=== PATIENT | male | born 1990 | race Caucasian/White ===

== ENCOUNTER 2017-04-08 11:28 | Emergency (ER) | payer OTHER ==
[~2017-04-08] VITALS: Wt 127.0 kg
[2017-04-08] MEDS ORDERED: ONDANSETRON (ODT) 4 MG TAB ODT STA (12:52)
[2017-04-08] MEDS ORDERED: HYDROCODONE/APAP (10/325) TAB PO ONE (13:00)
--- NOTE | 2017-04-08 13:45 | RADRPT ---
PROCEDURE: XR PELVIS. CLINICAL INDICATION: Pain status post fall TECHNIQUE: 3 views of the pelvis and left hip were performed. COMPARISON: None. FINDINGS: There is no evidence of acute fractures of the visualized pelvis. Iliac wings are intact. SI joints are symmetric. The pubic rami as are within normal limits. Both hips appear to be with normal limits . No gross abnormal osseous lesions. Soft tissues are unremarkable. There are degenerative changes o f the lumbosacral spine. IMPRESSION: 1. No evidence of acute fractures of visualized pelvis. RPTAT: AAPP Physician Rosaura Date Time Electronically viewed and signed by Physician Rosaura on 04/08/2017 13:45 ANSON/
--- NOTE | 2017-04-08 13:50 | RADRPT ---
PROCEDURE: XR left ribs . CLINICAL INDICATION: Fell 1 week ago TECHNIQUE: 4 views of the left ribs were obtained. COMPARISON: None FINDINGS: There is no evidence of acute fractures of the visualized left ribs. Bone mineralization is unremark able. The left lung is clear. No gross pneumothorax. The left costophrenic angle is sharp. The left shoulder and scapular appears to be within normal limits. IMPRESSION: 1. No gross signs of acute fractures of the visualized left ribs. 2. The left lung is clear. No gross pneumothorax. No evidence of pleural effusion. RPTAT: AAPP Physician Rosaura Date Time Electronically viewed and signed by Physician Rosaura on 04/08/2017 13:50 ANSON/
--- NOTE | 2017-04-08 14:01 | RADRPT ---
PROCEDURE: XR Lumbar Spine. CLINICAL INDICATION: Fall. Low back pain. TECHNIQUE: Three views of the lumbar spine are available for review COMPARISON: None available FINDINGS: There is maintenance of normal lumbar lordosis. Alignment is intact. There is moderate anterior co mpression fracture deformity of T12 vertebral body, likely chronic. No acute fracture or dislocation is seen. The vertebral body heights are preserved. There are mild degenerative changes of lumbar spine, most pronounced at T12-L1. IMPRESSION: 1. Moderate anterior compression fracture deformity of T12 vertebral body, likely chronic. Please n ote MRI is more sensitive for detection of acute fracture and can be obtained as clinically warrante d. 2. Mild discogenic disease mainly at T12-1. RPTAT: HH .Ajay Foote MD, Date Time Electronically viewed and signed by .Ajay Foote MD, on 04/08/2017 14:01 .N/
--- NOTE | 2017-04-08 14:21 | RADRPT ---
PROCEDURE: XR Thoracic Spine. CLINICAL INDICATION: Thoracic spine pain status post fall. TECHNIQUE: AP and lateral views of the thoracic spine were obtained. Images reviewed on a PACS wor kstation. COMPARISON: No prior studies are available for comparison. FINDINGS: There is a mild right convex scoliosis centered at T7. There is suggestion of 10% anterior compress ion deformity of the T12 vertebral body, incompletely evaluated due to mild scoliotic deformity. The remaining vertebral body heights appear maintained. The marrow density is normal in appearance. Th ere is preservation of the intervertebral disc spaces. The neural foramina appear patent. The para spinal soft tissues unremarkable. The visualized portions of the thorax are unremarkable. IMPRESSION: 1. Suggestion of 10% anterior compression deformity of the T12 of vertebral body, age indeterminate . CT is recommended to evaluate for possible fracture. 2. Trace right convex scoliosis centered at T7, slightly limiting evaluation. RPTAT: HGAS .George Fontaine MD, MD Date Time Electronically viewed and signed by .George Fontaine MD, on 04/08/2017 14:20 .S/
[2017-04-08] MEDS ORDERED: IBUP-1542 PO (14:38)
[2017-04-08] MEDS ORDERED: HYDR-902 PO (14:38)
[2017-04-08] MEDS ORDERED: ONDA4TAB14 PO (14:38)
--- NOTE | 2017-04-08 15:12 | ERD ---
ER Documentation Chief Complaint Chief Complaint fell a week ago , has back pain HPI 18-year-old male states that he fell about a week ago when he was going down the stairs he fell forward and hit his back. He states that he hit the left side of his upper back and has diffuse pain going down to his pelvis region. The pain is achy, diffuse, worse with movement and better at rest. He denies saddle anesthesia loss of bowel bladder function. Patient denies fevers, chills , chest pain, shortness breath. ROS All systems reviewed and are negative except as per history of present illness. Medications Home Meds Active Scripts Ibuprofen* (Motrin*) 600 Mg Tab, 600 MG PO Q6, #30 TAB Prov:MAHESH VILLARREAL PA-C 04/08/17 Ondansetron (Ondansetron Odt) 4 Mg Tab.rapdis, 4 MG PO Q6H Y for NAUSEA AND/OR VOMITING, #10 TAB Prov:MAHESH VILLARREAL PA-C 04/08/17 Hydrocodone/Acetaminophen ([place] 10-325 Tablet) 1 Each Tablet, 1 TAB PO Q6H Y for PAIN, #20 TAB Prov:MAHESH VILLARREAL PA-C 04/08/17 Allergies Allergies: Coded Allergies: No Known Allergy (Unverified , 04/08/17) PMhx/Soc History of Surgery: Yes (appendectomy) Hx Alcohol Use: No Hx Substance Use: No Hx Tobacco Use: No Smoking Status: Never smoker Physical Exam Vitals Vital Signs Date Time Temp Pulse Resp B/P Pulse Ox O2 Delivery O2 Flow Rate FiO2 04/08/17 11:32 97.7 72 18 133/86 99 Physical Exam Const: [] Head: Atraumatic Eyes: Normal Conjunctiva ENT: Normal External Ears, Nose and Mouth. Neck: Full range of motion..~ No meningismus. Resp: Clear to auscultation bilaterally Cardio: Regular rate and rhythm, no murmurs Abd: Soft, non tender, non distended. Normal bowel sounds Skin: No petechiae or rashes Back: No midline or flank tenderness Ext: No cyanosis, or edema Neur: Awake and alert Psych: Normal Mood and Affect Results 24 hrs Current Medications Medications (Trade) Dose Ordered Sig/Lorena Route PRN Reason Start Time Stop Time Status Last Admin Dose Admin Acetaminophen/ Hydrocodone Bitart ([place] (10/325)) 1 tab ONCE ONCE PO 04/08/17 13:00 04/08/17 13:01 DC 04/08/17 13:07 Ondansetron HCl (Zofran Odt) 4 mg ONCE STAT ODT 04/08/17 12:52 04/08/17 12:54 DC 04/08/17 13:07 DIAGNOSTIC IMAGING REPORT Patient: KALIA MARIE : 1990 Age: 26 Sex: M MR #: [id number] DOS: 04/08/17 1252 Ordering MD: MAHESH VILLARREAL PA-C Location: [facility] Room/Bed: PROCEDURE: XR Lumbar Spine. CLINICAL INDICATION: Fall. Low back pain. TECHNIQUE: Three views of the lumbar spine are available for review COMPARISON: None available FINDINGS: There is maintenance of normal lumbar lordosis. Alignment is intact. There is moderate anterior compression fracture deformity of T12 vertebral body, likely chronic. No acute fracture or dislocation is seen. The vertebral body heights are preserved. There are mild degenerative changes of lumbar spine, most pronounced at T12-L1. IMPRESSION: 1. Moderate anterior compression fracture deformity of T12 vertebral body, likely chronic. Please note MRI is more sensitive for detection of acute fracture and can be obtained as clinically warranted. 2. Mild discogenic disease mainly at T12-1. RPTAT: HH .Ajay Foote MD, MD Date Time Electronically viewed and signed by .Ajay Foote MD, MD on 04/08/2017 14: 01 .N/ CC: MAHESH VILLARREAL PA-C DIAGNOSTIC IMAGING REPORT Patient: KALIA MARIE : 1990 Age: 26 Sex: M MR #: [id number] DOS: 04/08/17 1252 Ordering MD: MAHESH VILLARREAL PA-C Location: [facility] Room/Bed: PROCEDURE: XR PELVIS. CLINICAL INDICATION: Pain status post fall TECHNIQUE: 3 views of the pelvis and left hip were performed. COMPARISON: None. FINDINGS: There is no evidence of acute fractures of the visualized pelvis. Iliac wings are intact. SI joints are symmetric. The pubic rami as are within normal limits. Both hips appear to be with normal limits. No gross abnormal osseous lesions. Soft tissues are unremarkable. There are degenerative changes of the lumbosacral spine. IMPRESSION: 1. No evidence of acute fractures of visualized pelvis. RPTAT: AAPP Physician Rosaura Date Time Electronically viewed and signed by Physician Rosaura on 04/08/2017 13:45 JL/ CC: MAHESH VILLARREAL PA-C DIAGNOSTIC IMAGING REPORT Patient: KALIA MARIE : 1990 Age: 26 Sex: M MR #: [id number] DOS: 04/08/17 1252 Ordering MD: MAHESH VILLARREAL PA-C Location: [facility] Room/Bed: PROCEDURE: XR Thoracic Spine. CLINICAL INDICATION: Thoracic spine pain status post fall. TECHNIQUE: AP and lateral views of the thoracic spine were obtained. Images reviewed on a PACS workstation. COMPARISON: No prior studies are available for comparison. FINDINGS: There is a mild right convex scoliosis centered at T7. There is suggestion of 10% anterior compression deformity of the T12 vertebral body, incompletely evaluated due to mild scoliotic deformity. The remaining vertebral body heights appear maintained. The marrow density is normal in appearance. There is preservation of the intervertebral disc spaces. The neural foramina appear patent. The paraspinal soft tissues unremarkable. The visualized portions of the thorax are unremarkable. IMPRESSION: 1. Suggestion of 10% anterior compression deformity of the T12 of vertebral body, age indeterminate. CT is recommended to evaluate for possible fracture. 2. Trace right convex scoliosis centered at T7, slightly limiting evaluation. RPTAT: HGAS .George Fontaine MD, Date Time Electronically viewed and signed by .George Fontaine MD, on 04/08/2017 14: 20 .S/ CC: MAHESH VILLARREAL- DIAGNOSTIC IMAGING REPORT Patient: KALIA MARIE : 1990 Age: 26 Sex: M MR #: [id number] DOS: 04/08/17 1252 Ordering MD: MAHESH VILLARREAL PA-C Location: [facility] Room/Bed: PROCEDURE: XR left ribs . CLINICAL INDICATION: Fell 1 week ago TECHNIQUE: 4 views of the left ribs were obtained. COMPARISON: None FINDINGS: There is no evidence of acute fractures of the visualized left ribs. Bone mineralization is unremarkable. The left lung is clear. No gross pneumothorax. The left costophrenic angle is sharp. The left shoulder and scapular appears to be within normal limits. IMPRESSION: 1. No gross signs of acute fractures of the visualized left ribs. 2. The left lung is clear. No gross pneumothorax. No evidence of pleural effusion. RPTAT: AAPP Physician Rosaura Date Time Electronically viewed and signed by Physician Rosaura on 04/08/2017 13:50 JL/ CC: MAHESH VILLARREAL PA-C Procedures/MDM 26-year-old male comes in with appears to be a possible acute fracture, age indeterminate of the T12 vertebral body with 10% compression. He has diffuse pain that is nonspecific, he will require a MRI that can be done outpatient as this is a stable fracture and he has no focal neurologic signs. X-rays of the ribs are normal including the chest, as well as the lumbar spine, and pelvis. There are no signs of cauda equina, epidural abscess, dissection. He will be given copies of his x-rays, as well as the disc and [place], ibuprofen and Zofran for home. He was advised to follow-up with his primary care doctor to get a referral to see a spinal surgeon, and he was made aware that he may do the MRI outpatient which she understands. Departure Diagnosis: Primary Impression: Compression fracture of T12 vertebra Additional Impression: Injury of back Condition: Good Patient Instructions: Fracture, Vertebral Compression Additional Instructions: TAI CHI INSTRUCTOR: YOU HAVE A MEDICAL CONDITION WHICH REQUIRES YOU TO SEE A SPECIALIST WITHIN THE NEXT 1 WEEK. PLEASE FOLLOW UP WITH YOUR PRIMARY PHYSICIAN FOR REFFERAL.IF YOU DO NOT HAVE A PRIMARY CARE PHYSICIAN AND/OR YOU CAN NOT AFFORD TO SEE A PHYSICIAN THE FOLLOWING RESOURCES HAVE BEEN SUPPLIED TO YOU. IT IS YOUR RESPONSIBILITY TO BE SEEN BY THE SPECIALIST MAHESH VILLARREAL PA-C Apr 08, 2017 15:12
[2017-04-08] MEDS ORDERED: HYDROmorphONE 2 MG TAB PO ONE (15:30)
[2017-04-08 16:09] VITALS: BP 135/67; PULSE 79; RESP 20
== END 2017-04-08 16:10 | disposition home or self-care (01) ==
LOC: FTE 11:28
DX: S22.088A Other fracture of T11-T12 vertebra, initial encounter for closed fracture (principal); W10.9XXA Fall (on) (from) unspecified stairs and steps, initial encounter; Y92.9 Unspecified place or not applicable
CPT/HCPCS: 71100; 72072; 72100; 72170; J1170; Z7610

== ENCOUNTER 2017-04-26 09:47 | Emergency (ER) | END 2017-04-26 13:05 | disposition home or self-care (01) ==

== ENCOUNTER 2018-10-19 18:36 | Emergency (ER) | payer OTHER ==
[~2018-10-19] VITALS: Ht 190.5 cm; Wt 120.5 kg
[~2018-10-19 18:36] MED LIST: ALBU8.5H8 INH; AZIT250T PO; GUAI5SYR2 PO; HYDR-3980 PO; IBUP-1542 PO; NAPR-985 PO; ONDA4TAB14 PO; PRED20TA PO; TRAM50TA2 PO
[2018-10-19 18:38] VITALS: Ht 190.5 cm; Wt 120.5 kg
[2018-10-19] MEDS ORDERED: HYDROmorphONE 2 MG/ML SYG IM STA (22:27)
[2018-10-19] MEDS ORDERED: CYCLOBENZAPRINE 10 MG TAB PO ONE (22:30)
[2018-10-19] MEDS ORDERED: CYCL10TA7 PO (23:22)
[2018-10-19] MEDS ORDERED: IBUP800T48 PO (23:22)
[2018-10-19] MEDS ORDERED: HYDR-4011 PO (23:22)
--- NOTE | 2018-10-19 23:23 | ERD ---
ER Documentation Chief Complaint Chief Complaint NECK PAIN RADIATES TO BACK S/P LIFTING HEAVY OBJECT HPI 28-year-old male presenting with generalized back pain. 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 However yesterday he decided to do that again and made his back pain worse. He states the pain started in his upper back by his left shoulder, but now it is radiating to his neck and down his back. No alleviating factors. Exacerbated by movement. He has tried Advil at home without relief. No change in bowel or bladder habits. No focal weakness or numbness. ROS All systems reviewed and are negative except as per history of present illness. Medications Home Meds Active Scripts Ibuprofen* (Motrin*) 800 Mg Tab, 800 MG PO Q6H PRN for PAIN AND OR ELEVATED TEMP, #30 TAB Prov:LAURA CUEVA MD 10/19/18 Cyclobenzaprine Hcl* (Cyclobenzaprine Hcl*) 10 Mg Tablet, 10 MG PO TID PRN for MUSCLE SPASMS, #15 TAB Prov:LAURA CUEVA MD 10/19/18 Hydrocodone/Acetaminophen ([place] 5-325 Tablet) 1 Each Tablet, 1 TAB PO Q6H PRN for PAIN, #10 TAB Prov:LAURA CUEVA MD 10/19/18 Naproxen* (Naprosyn*) 500 Mg Tablet, 500 MG PO BID PRN for PAIN AND/OR INFLAMMATION, #30 TAB Prov:SIVA PONCE PA-C 04/26/17 Tramadol HCl (Tramadol HCl) 50 Mg Tablet, 50 MG PO Q4 PRN for PAIN, #20 TAB Prov:SIVA PONCE PA-C 04/26/17 Guaifenesin-Dextromethorphan* (Robitussin* DM) 100MG/10MG/5ML Syrup, 10 ML PO Q6H PRN for COUGH for 5 Days, ML Prov:SIVA PONCE PA-C 04/26/17 Albuterol Sulfate* (Proair HFA*) 8.5 Gm Hfa.aer.ad, 2 PUFF INH Q4, #1 INHALER Prov:SIVA PONCE PA-C 04/26/17 Prednisone* (Prednisone*) 20 Mg Tab, 40 MG PO DAILY for 4 Days, TAB Prov:SIVA PONCE PA-C 04/26/17 Azithromycin* (Zithromax*) 250 Mg Tablet, 250 MG PO .ZPACK DIRECTED, #6 TAB TAKE 500 MG (2 TABS) THE FIRST DAY THEN 250 MG (1 TAB) DAYS 2-5 Prov:SIVA PONCE PA-C 04/26/17 Ibuprofen* (Motrin*) 600 Mg Tab, 600 MG PO Q6, #30 TAB Prov:MAHESH VILLARREAL PA-C 04/08/17 Ondansetron (Ondansetron Odt) 4 Mg Tab.rapdis, 4 MG PO Q6H PRN for NAUSEA AND/OR VOMITING, #10 TAB Prov:MAHESH VILLARREAL PA-C 04/08/17 Hydrocodone/Acetaminophen ([place] 10-325 Tablet) 1 Each Tablet, 1 TAB PO Q6H PRN for PAIN, #20 TAB Prov:MAHESH VILLARREAL PA-C 04/08/17 Allergies Allergies: Coded Allergies: No Known Allergy (Unverified , 04/08/17) PMhx/Soc History of Surgery: No Anesthesia Reaction: No Hx Respiratory Disorders: Yes (HX of Asthma) Hx Miscellaneous Medical Probl: Yes (Remote history of T 12 compression FX) Hx Alcohol Use: No Hx Substance Use: No Hx Tobacco Use: No Smoking Status: Never smoker FmHx Family History: No diabetes Physical Exam Vitals Vital Signs Date Temp Pulse Resp B/P (MAP) Pulse Ox O2 O2 Flow FiO2 Time Delivery Rate 10/19/18 67 16 137/69 99 Room Air 23:27 (91) 10/19/18 98.6 46 18 151/74 98 18:38 (99) Physical Exam Const: Appears to be in distress due to pain Head: Atraumatic Eyes: Normal Conjunctiva ENT: Normal External Ears, Nose and Mouth. Neck: Full range of motion, but has pain with range of motion of neck. No meningismus. Bilateral paraspinal muscle tenderness. No C-spine tenderness. Resp: Clear to auscultation bilaterally Cardio: Regular rate and rhythm, no murmurs. 2+ distal pulses Abd: Soft, non tender, non distended. Normal bowel sounds Skin: No petechiae or rashes Back: No midline spinal tenderness. Diffuse bilateral thoracic and lumbar paraspinal muscle tenderness. Ext: No cyanosis, or edema Neur: Awake and alert, normal speech, no facial asymmetry, strength and sensations intact in all 4 extremities. Psych: Normal Mood and Affect Results 24 hrs Current Medications Medications Dose Sig/Lorena Start Time Status Last (Trade) Ordered Route PRN Stop Time Admin Dose Reason Admin 1 mg ONCE STAT 10/19/18 DC 10/19/18 Hydromorphone IM 22:27 22:34 HCl 10/19/18 22:28 (Dilaudid) 10 mg ONCE ONCE 10/19/18 DC 10/19/18 Cyclobenzapri PO 22:30 22:34 ne HCl 10/19/18 22:31 (Flexeril) Procedures/MDM This is an otherwise healthy, well appearing patient presenting with back pain. Patients does not have any high-risk features on history, such as high-energy trauma, IVDA, cancer, significant weight loss or history of TB, and the patient has a normal neurologic exam without fever, severe or progressive neurologic deficits, new or worsening urinary retention, urinary/stool incontinence; therefore imaging was not indicated in the ED. I doubt spinal fracture, epidural hematoma, epidural abscess, unstable spinal pathology, emergent renal or aortic pathology, or spinal cord compression. Upon discharge, the patients pain was somewhat improved. Return precautions were discussed including worsening pain, new/worsening weakness/numbness, difficulty urinating, or incontinence. Patient is aware that the purpose of this visit was to screen for an acute medical emergency requiring emergent stabilization. Chronic conditions, including malignancies, have not been ruled out. Patient is instructed to follow-up with a PCP and/or orthopedic surgeon as directed in discharge in structions for continued care and work-up. If unable to arrange follow-up, patient is instructed to return to the ED for reassessment. Patient was given verbal and written discharge instructions and acknowledges understanding Prescription for [place], ibuprofen, and Flexeril given. Departure Diagnosis: Primary Impression: Upper back strain Encounter type: initial encounter Qualified Codes: S29.012A - Strain of muscle and tendon of back wall of thorax, initial encounter Condition: Stable Patient Instructions: Back Safety: Lifting, Back Sprain/Strain Referrals: COMMUNITY CLINICS YOU HAVE RECEIVED A MEDICAL SCREENING EXAM AND THE RESULTS INDICATE THAT YOU DO NOT HAVE A CONDITION THAT REQUIRES URGENT TREATMENT IN THE EMERGENCY DEPARTMENT. FURTHER EVALUATION AND TREATMENT OF YOUR CONDITION CAN WAIT UNTIL YOU ARE SEEN IN YOUR DOCTORS OFFICE WITHIN THE NEXT 1-2 DAYS. IT IS YOUR RESPONSIBILITY TO MAKE AN APPOINTMENT FOR FOLOW-UP CARE. IF YOU HAVE A PRIMARY DOCTOR --you should call your primary doctor and schedule an appointment IF YOU DO NOT HAVE A PRIMARY DOCTOR YOU CAN CALL OUR PHYSICIAN REFERRAL HOTLINE AT IF YOU CAN NOT AFFORD TO SEE A PHYSICIAN YOU CAN CHOSE FROM THE FOLLOWING [facility] [address] [facility] [address] [facility] [facility] [address] [facility] [address] [facility] [address] [facility]. [facility] [address] Additional Instructions: If your symptoms are worsening, return to the ER. Otherwise follow-up with your primary care doctor within 1 week if your symptoms are not improving as expected. LAURA CUEVA MD Oct 19, 2018 23:23
[2018-10-19 23:27] VITALS: BP 137/69; PULSE 67; RESP 16
== END 2018-10-19 23:28 | disposition home or self-care (01) ==
LOC: E/R 18:36
DX: S29.012A Strain of muscle and tendon of back wall of thorax, initial encounter (principal); J45.909 Unspecified asthma, uncomplicated; X50.0XXA Overexertion from strenuous movement or load, initial encounter; Y92.9 Unspecified place or not applicable
CPT/HCPCS: 96372; J1170; Z7502; Z7610